=== PATIENT | male | born 1935 | race Caucasian/White ===

== ENCOUNTER 2022-04-01 11:37 | Inpatient (IN) | payer MEDICARE, OTHER ==
[~2022-04-01] VITALS: Ht 175.3 cm; Wt 135.9 kg
[2022-04-01 12:26] LABS: BASOPHILS % (AUTO) 0.2 % (0.0-2.0); EOSINOPHILS % (AUTO) 1.7 % (1.0-6.0); HEMATOCRIT 39.2 % (41-53); HEMOGLOBIN 13.1 g/dL (13.5-17.5); LYMPHOCYTES # (AUTO) 0.8 K/uL (1.0-4.8); LYMPHOCYTES % (AUTO) 13.5 % (22.0-44.0); MEAN CORPUSCULAR HEMOGLOBIN 29.5 pg (26.0-34.0); MEAN CORPUSCULAR HGB CONC 33.4 G/dL (31.0-37.0); MEAN CORPUSCULAR VOLUME 88 fL (80-100); MONOCYTES # (AUTO) 0.5 K/uL (0.1-1.0); MONOCYTES % (AUTO) 8.8 % (2.0-9.0); NEUTROPHILS # (AUTO) 4.5 K/uL (1.8-7.7); NEUTROPHILS % (AUTO) 75.8 % (40.0-70.0); PLATELET COUNT (AUTO) 239 K/uL (150-450); RED BLOOD CELL COUNT(AUTO) 4.45 MIL/uL (4.50-5.90); RED CELL DISTRIBUTION WIDTH 13.9 % (11.5-14.5)
[2022-04-01 12:38] LABS: ANION GAP 5 mmol/L (8-16); CALCIUM, TOTAL 8.9 mg/dL (8.8-10.5); CARBON DIOXIDE 32 mmol/L (22-29); CHLORIDE 100 mmol/L (98-107); CREATININE 0.83 mg/dL (0.60-1.30); GLUCOSE,RANDOM 85 mg/dL (70-110); POTASSIUM 4.3 mmol/L (3.5-5.1); SODIUM SERUM 137 mmol/L (136-145); UREA NITROGEN, BLOOD 24 mg/dL (7-18)
[2022-04-01 12:39] LABS: GLOMERULAR FILTR. RATE CALC > 60 mL/min (>60)
[2022-04-01 12:45] LABS: ALANINE AMINOTRANSFERASE 17 U/L (12-78); ALBUMIN 2.6 g/dL (3.4-5.0); ALKALINE PHOSPHATASE 79 U/L (46-116); AMMONIA 46 umol/L (11-32); ASPARTATE AMINOTRANSFERASE 30 U/L (15-37); CREATINE KINASE, TOTAL ONLY 95 U/L (39-308); TOTAL PROTEIN, SERUM 6.9 g/dL (6.4-8.2)
[2022-04-01 12:46] LABS: INR 1.1 (0.9-1.1)
[2022-04-01 12:51] LABS: LACTIC ACID 3.2 mmol/L (0.4-2.0)
[2022-04-01] MEDS ORDERED: SODIUM CHLORIDE 0.9% 1,000 ML IV ONE (13:00)
[2022-04-01] MEDS ORDERED: PIPERACILLIN/TAZO 3.375 GM/D5W 50 ML IV ONE (13:00)
[2022-04-01 13:11] LABS: B-TYPE NATRIURETIC PEPTIDE 177 pg/mL (0-100)
[2022-04-01] MEDS ORDERED: LEVOFLOXACIN 750 MG/D5% WATER 150 ML IV ONE (13:15)
[2022-04-01] MEDS ORDERED: 0.9% SODIUM CHLORIDE 10 ML SYRINGE IVP PRN (13:45)
[2022-04-01] MEDS ORDERED: ACETAMINOPHEN 325 MG TABLET PO PRN ×2 (13:45→20:15)
[2022-04-01] MEDS ORDERED: ONDANSETRON HCL 4 MG/2 ML VIAL IVP PRN ×2 (13:45→20:15)
[2022-04-01 17:31] VITALS: BP 89/68
[2022-04-01 19:36] VITALS: BP 146/54
[2022-04-01 20:23] VITALS: BP 102/49
[2022-04-01] MEDS ORDERED: DiphenhydrAMINE HCL 50 MG/ML VIAL IVP ONE (20:30)
[2022-04-01] MEDS ORDERED: LORazepam 2 MG/ML VIAL IVP ONE (20:30)
[2022-04-01] MEDS ORDERED: BENZTROPINE MESYLATE 1 MG/ML 2 ML VIAL IVP ONE (21:15)
[2022-04-01] MEDS ORDERED: PIPERACILLIN/TAZO 3.375 GM/D5W 50 ML IV SCH (22:00)
[2022-04-01] MEDS ORDERED: DiphenhydrAMINE HCL 50 MG/ML VIAL IVP PRN (23:30)
[2022-04-01 23:36] VITALS: BP 113/67
[2022-04-01] MEDS ORDERED: APIX5TAB PO (23:36)
[2022-04-01] MEDS: RINGERS SOLUTION,LACTATED 1,000 ML IV SCH (23:42)
[2022-04-02] MEDS ORDERED: FURO-151 PO
[2022-04-02] MEDS ORDERED: LOSA-382 PO
[2022-04-02] MEDS ORDERED: BACL10TA PO
[2022-04-02] MEDS ORDERED: TAMS-13 PO
[2022-04-02] MEDS ORDERED: XALA2.5OS OU
[2022-04-02] MEDS ORDERED: HEPARIN SODIUM,PORCINE 5,000 UNITS/ML VIAL SQ SCH
[2022-04-02] MEDS ORDERED: MULT-660 PO
[2022-04-02] MEDS ORDERED: DOCU-350 PO
[2022-04-02] MEDS ORDERED: MELATONIN 5 MG TABLET PO PRN
[2022-04-02] MEDS ORDERED: BUPR-50 PO
[2022-04-02] MEDS ORDERED: MELA5TAB40 PO
[2022-04-02] MEDS ORDERED: LEVO100 PO
[2022-04-02] MEDS ORDERED: VANCOMYCIN HCL 1.5 GM in DEXTROSE 5%-WATER 250 ML IV ONE (00:30)
[2022-04-02] MEDS ORDERED: SODIUM CHLORIDE 0.9% 250 ML IV ONE ×2 (01:56→10:29)
[2022-04-02] MEDS: ACYCLOVIR 600 MG in DEXTROSE 5%-WATER 100 ML IV SCH ×3 (01:58→17:04)
[2022-04-02 03:12] VITALS: BP 121/69
[2022-04-02] MEDS: CefTRIAXone SODIUM 2 GM in DEXTROSE 5%-WATER 50 ML IV SCH ×2 (03:46→15:40)
[2022-04-02 04:36] LABS: COVID AG,FIA SOURCE NASOPHARYNGEAL
[2022-04-02] MEDS: LEVOTHYROXINE SODIUM 100 MCG TABLET PO SCH (06:03)
[2022-04-02 07:29] VITALS: BP 154/88
[2022-04-02 08:11] LABS: BASOPHILS % (AUTO) 0.6 % (0.0-2.0); EOSINOPHILS % (AUTO) 1.9 % (1.0-6.0); HEMATOCRIT 35.9 % (41-53); HEMOGLOBIN 12.3 g/dL (13.5-17.5); LYMPHOCYTES # (AUTO) 0.7 K/uL (1.0-4.8); LYMPHOCYTES % (AUTO) 12.5 % (22.0-44.0); MEAN CORPUSCULAR HEMOGLOBIN 29.9 pg (26.0-34.0); MEAN CORPUSCULAR HGB CONC 34.3 G/dL (31.0-37.0); MEAN CORPUSCULAR VOLUME 87 fL (80-100); MONOCYTES # (AUTO) 0.5 K/uL (0.1-1.0); MONOCYTES % (AUTO) 8.6 % (2.0-9.0); NEUTROPHILS # (AUTO) 4.2 K/uL (1.8-7.7); NEUTROPHILS % (AUTO) 76.4 % (40.0-70.0); PLATELET COUNT (AUTO) 198 K/uL (150-450); RED BLOOD CELL COUNT(AUTO) 4.11 MIL/uL (4.50-5.90); RED CELL DISTRIBUTION WIDTH 13.8 % (11.5-14.5)
[2022-04-02 08:29] LABS: ALANINE AMINOTRANSFERASE 16 U/L (12-78); ALBUMIN 2.2 g/dL (3.4-5.0); ALKALINE PHOSPHATASE 65 U/L (46-116); ANION GAP 5 mmol/L (8-16); ASPARTATE AMINOTRANSFERASE 36 U/L (15-37); BILIRUBIN,TOTAL 1.2 mg/dL (0.1-1.0); CALCIUM, TOTAL 8.5 mg/dL (8.8-10.5); CARBON DIOXIDE 32 mmol/L (22-29); CHLORIDE 104 mmol/L (98-107); GLUCOSE,RANDOM 75 mg/dL (70-110); POTASSIUM 3.5 mmol/L (3.5-5.1); SODIUM SERUM 141 mmol/L (136-145); TOTAL PROTEIN, SERUM 6.2 g/dL (6.4-8.2); UREA NITROGEN, BLOOD 18 mg/dL (7-18)
[2022-04-02 08:31] LABS: GLOMERULAR FILTR. RATE CALC > 60 mL/min (>60)
[2022-04-02] MEDS: DOCUSATE SODIUM 250 MG CAPSULE PO SCH (09:00)
[2022-04-02] MEDS: APIXABAN 5 MG TABLET PO SCH ×2 (09:00→20:51)
[2022-04-02] MEDS: BACLOFEN 10 MG TABLET PO SCH ×2 (09:00→20:51)
[2022-04-02] MEDS: FUROSEMIDE 40 MG TABLET PO SCH (09:00)
[2022-04-02] MEDS: LOSARTAN POTASSIUM 50 MG TABLET PO SCH (09:00)
[2022-04-02] MEDS: MULTIVITAMINS, THERAPEUTIC TABLET PO SCH (09:00)
[2022-04-02] MEDS: VANCOMYCIN HCL 1.25 GM in DEXTROSE 5%-WATER 250 ML IV SCH ×2 (09:14→20:44)
[2022-04-02 09:19] LABS: CREATINE KINASE, TOTAL ONLY 208 U/L (39-308)
[2022-04-02 10:56] VITALS: BP 116/66
[2022-04-02 13:59] LABS: APPEARANCE,URINE HAZY (CLEAR); BILIRUBIN,URINE NEGATIVE (NEGATIVE); GLUCOSE, URINE (UA) NEGATIVE (NEGATIVE); KETONES,URINE TRACE mg/dL (NEGATIVE); LEUKOCYTE ESTERASE ,URINE NEGATIVE (NEGATIVE); NITRATE,URINE NEGATIVE (NEGATIVE); OCCULT BLOOD,URINE TRACE (NEGATIVE); PH,URINE 6.5 (5.0-8.0); PROTEIN,URINE TRACE mg/dL (NEGATIVE); SPECIFIC GRAVITIY, URINE 1.035 (1.003-1.030); UROBILINOGEN,URINE <=1.0 mg/dL (<=1.0)
[2022-04-02 14:04] LABS: AMPHET/METH SCREEN,URINE NEGATIVE (NEGATIVE); BARBITURATE SCREEN, URINE NEGATIVE (NEGATIVE); BENZODIAZEPINES SCREEN,URINE NEGATIVE (NEGATIVE); CANNABINOID SCREEN,URINE NEGATIVE (NEGATIVE); COCAINE SCREEN,URINE NEGATIVE (NEGATIVE); METHADONE SCREEN, URINE NEGATIVE (NEGATIVE); OPIATE SCREEN,URINE POSITIVE (NEGATIVE)
[2022-04-02 14:06] LABS: PHENCYCLIDINE SCREEN,URINE NEGATIVE (NEGATIVE)
[2022-04-02 14:32] LABS: BACTERIA,URINE None Seen /HPF (None Seen); RBC,URINE 0-2 /HPF (0-2); SQUAMOUS EPITHELIAL CELL,UR Rare /LPF (None Seen); WBC,URINE None Seen /HPF (0-5)
[2022-04-02 14:54] VITALS: BP 113/50
[2022-04-02] MEDS: RINGERS SOLUTION,LACTATED 1,000 ML IV SCH (15:38)
[2022-04-02 20:13] VITALS: BP 115/58
[2022-04-02] MEDS: HYPROMELLOSE 0.5% 15 ML OPHTHALMIC SOLUTION OU PRN ×2 (20:44→20:45)
[2022-04-02] MEDS: LATANOPROST 0.005% 2.5 ML OPHTHALMIC SOLUTION OU SCH (20:48)
[2022-04-02] MEDS: TAMSULOSIN HCL 0.4 MG CAPSULE PO SCH (20:51)
[2022-04-03 00:19] VITALS: BP 110/44
[2022-04-03] MEDS: ACYCLOVIR 600 MG in DEXTROSE 5%-WATER 100 ML IV SCH ×3 (01:19→17:18)
[2022-04-03] MEDS: CefTRIAXone SODIUM 2 GM in DEXTROSE 5%-WATER 50 ML IV SCH ×2 (03:28→15:30)
[2022-04-03 04:29] VITALS: BP 131/82
[2022-04-03] MEDS: RINGERS SOLUTION,LACTATED 1,000 ML IV SCH ×2 (06:18→20:30)
[2022-04-03] MEDS: LEVOTHYROXINE SODIUM 100 MCG TABLET PO SCH (06:21)
[2022-04-03 07:58] LABS: ANION GAP 7 mmol/L (8-16); CALCIUM, TOTAL 8.1 mg/dL (8.8-10.5); CARBON DIOXIDE 28 mmol/L (22-29); CHLORIDE 103 mmol/L (98-107); CREATININE 0.57 mg/dL (0.60-1.30); GLUCOSE,RANDOM 74 mg/dL (70-110); POTASSIUM 3.4 mmol/L (3.5-5.1); SODIUM SERUM 138 mmol/L (136-145); UREA NITROGEN, BLOOD 13 mg/dL (7-18); VANCOMYCIN,RANDOM 18.1 mcg/mL (25.0-50.0)
[2022-04-03 08:00] VITALS: BP 137/73
[2022-04-03 08:01] LABS: GLOMERULAR FILTR. RATE CALC > 60 mL/min (>60)
[2022-04-03] MEDS: VANCOMYCIN HCL 1.25 GM in DEXTROSE 5%-WATER 250 ML IV SCH ×2 (08:40→20:31)
[2022-04-03] MEDS: LOSARTAN POTASSIUM 50 MG TABLET PO SCH (08:46)
[2022-04-03] MEDS: APIXABAN 5 MG TABLET PO SCH ×2 (08:46→20:29)
[2022-04-03] MEDS: DOCUSATE SODIUM 250 MG CAPSULE PO SCH (08:46)
[2022-04-03] MEDS: MULTIVITAMINS, THERAPEUTIC TABLET PO SCH (08:47)
[2022-04-03] MEDS: FUROSEMIDE 40 MG TABLET PO SCH (08:47)
[2022-04-03] MEDS: BACLOFEN 10 MG TABLET PO SCH ×2 (08:47→20:29)
[2022-04-03 11:10] VITALS: BP 119/71
[2022-04-03 15:52] VITALS: BP 123/52
[2022-04-03 19:38] VITALS: BP 126/55
[2022-04-03] MEDS: TAMSULOSIN HCL 0.4 MG CAPSULE PO SCH (20:29)
[2022-04-03] MEDS: LATANOPROST 0.005% 2.5 ML OPHTHALMIC SOLUTION OU SCH (20:30)
[2022-04-03] MEDS ORDERED: SODIUM CHLORIDE 0.9% 250 ML IV ONE (20:34)
[2022-04-04] VITALS (7 sets, daily range): BP systolic 103–123; BP diastolic 53–62
[2022-04-04] MEDS: ACYCLOVIR 600 MG in DEXTROSE 5%-WATER 100 ML IV SCH ×3 (01:46→17:31)
[2022-04-04] MEDS: CefTRIAXone SODIUM 2 GM in DEXTROSE 5%-WATER 50 ML IV SCH ×2 (03:41→16:08)
[2022-04-04] MEDS: LEVOTHYROXINE SODIUM 100 MCG TABLET PO SCH (05:52)
[2022-04-04 07:48] LABS: CALCIUM, TOTAL 8.4 mg/dL (8.8-10.5); CARBON DIOXIDE 31 mmol/L (22-29); GLUCOSE,RANDOM 84 mg/dL (70-110); POTASSIUM 3.6 mmol/L (3.5-5.1); UREA NITROGEN, BLOOD 7 mg/dL (7-18)
[2022-04-04 07:51] LABS: ANION GAP 3 mmol/L (8-16); CHLORIDE 100 mmol/L (98-107); SODIUM SERUM 134 mmol/L (136-145)
[2022-04-04 07:52] LABS: GLOMERULAR FILTR. RATE CALC > 60 mL/min (>60)
[2022-04-04] MEDS: RINGERS SOLUTION,LACTATED 1,000 ML IV SCH (09:02)
[2022-04-04] MEDS: VANCOMYCIN HCL 1.25 GM in DEXTROSE 5%-WATER 250 ML IV SCH ×2 (09:03→20:04)
[2022-04-04] MEDS: BACLOFEN 10 MG TABLET PO SCH ×2 (10:25→20:04)
[2022-04-04] MEDS: LOSARTAN POTASSIUM 50 MG TABLET PO SCH (10:25)
[2022-04-04] MEDS: FUROSEMIDE 40 MG TABLET PO SCH (10:25)
[2022-04-04] MEDS: MULTIVITAMINS, THERAPEUTIC TABLET PO SCH (10:25)
[2022-04-04] MEDS: APIXABAN 5 MG TABLET PO SCH ×2 (10:26→20:04)
[2022-04-04] MEDS: DOCUSATE SODIUM 250 MG CAPSULE PO SCH (10:26)
[2022-04-04] MEDS: TAMSULOSIN HCL 0.4 MG CAPSULE PO SCH (20:04)
[2022-04-04] MEDS: LATANOPROST 0.005% 2.5 ML OPHTHALMIC SOLUTION OU SCH (20:14)
[2022-04-05] MEDS: ACYCLOVIR 600 MG in DEXTROSE 5%-WATER 100 ML IV SCH ×2 (00:25→12:30)
[2022-04-05] MEDS: RINGERS SOLUTION,LACTATED 1,000 ML IV SCH ×2 (00:25→14:20)
[2022-04-05] MEDS: CefTRIAXone SODIUM 2 GM in DEXTROSE 5%-WATER 50 ML IV SCH ×2 (03:45→13:41)
[2022-04-05 03:54] VITALS: BP 105/48
[2022-04-05] MEDS: LEVOTHYROXINE SODIUM 100 MCG TABLET PO SCH (05:52)
[2022-04-05 07:24] LABS: ANION GAP 6 mmol/L (8-16); CALCIUM, TOTAL 8.3 mg/dL (8.8-10.5); CARBON DIOXIDE 30 mmol/L (22-29); CHLORIDE 103 mmol/L (98-107); CREATININE 0.56 mg/dL (0.60-1.30); GLUCOSE,RANDOM 93 mg/dL (70-110); POTASSIUM 3.6 mmol/L (3.5-5.1); SODIUM SERUM 139 mmol/L (136-145); UREA NITROGEN, BLOOD 6 mg/dL (7-18)
[2022-04-05 07:29] LABS: GLOMERULAR FILTR. RATE CALC > 60 mL/min (>60)
[2022-04-05 07:40] VITALS: BP 115/54
[2022-04-05] MEDS: VANCOMYCIN HCL 1.25 GM in DEXTROSE 5%-WATER 250 ML IV SCH (09:41)
[2022-04-05] MEDS: FUROSEMIDE 40 MG TABLET PO SCH (09:41)
[2022-04-05] MEDS: MULTIVITAMINS, THERAPEUTIC TABLET PO SCH (09:42)
[2022-04-05] MEDS: BACLOFEN 10 MG TABLET PO SCH (09:43)
[2022-04-05] MEDS: LOSARTAN POTASSIUM 50 MG TABLET PO SCH (09:43)
[2022-04-05] MEDS: APIXABAN 5 MG TABLET PO SCH (09:43)
[2022-04-05] MEDS ORDERED: SODIUM CHLORIDE 0.9% 250 ML IV ONE (09:46)
[2022-04-05] MEDS: DOCUSATE SODIUM 250 MG CAPSULE PO SCH (09:54)
[2022-04-05 11:50] VITALS: BP 107/45
== END 2022-04-05 16:00 | DRG 91 ==
LOC: EMS 11:37 → 5S 16:10
PROVIDERS: ADMIT Hospitalist; ATTEND Hospitalist
DX: R25.8 Other abnormal involuntary movements (principal); G93.41 Metabolic encephalopathy; N39.0 Urinary tract infection, site not specified; L03.119 Cellulitis of unspecified part of limb; Z20.822 Contact with and (suspected) exposure to COVID-19; E03.9 Hypothyroidism, unspecified; E78.5 Hyperlipidemia, unspecified; I48.91 Unspecified atrial fibrillation; I50.9 Heart failure, unspecified; N40.0 Benign prostatic hyperplasia without lower urinary tract symptoms; I11.0 Hypertensive heart disease with heart failure; Z79.01 Long term (current) use of anticoagulants; Z85.46 Personal history of malignant neoplasm of prostate
CPT/HCPCS: 70450; 71045; 72125; 80048; 80053; 80202; 81001; 82140; 82550; 83605; 83735; 83880; 84100; 84484; 85025; 85610; 85730; 86592; 87040; 87081; 92521; 93005; 99285; G0480; J0133; J0515; J0696; J1200; J1644; J1956; J2060; J2543; J3370; J7050; J7060; J7120; 36415-L1; 36415-TC